=== PATIENT | male | born 1995 | race Hispanic/Latino ===

== ENCOUNTER 2019-02-22 19:33 | Emergency (ER) | payer BC ==
[2019-02-22 21:29] VITALS: TEMP 100.6
[2019-02-22 22:04] VITALS: BP 121/70; O2SAT 98
--- NOTE | 2019-02-22 22:29 | ED.PDOC ---
History of Present Illness - General Chief Complaint: Respiratory Problem Stated Complaint: sore throat Time Seen by Provider: 02/22/19 21:43 Source: patient, RN notes reviewed, Vital Signs reviewed Exam Limitations: no limitations - History of Present Illness Comments: Patient is a 24-year-old male who presents with complaints of sore throat, cough and fever for the last day. The sore throat is scratchy and burning in nature. It is moderate in intensity. Pain is worse with cough or swallowing. Nothing improves the pain. Fever is responsive to Tylenol and Motr in. Timing/Duration: yesterday Cough Quality/Degree: mild, dry cough Possible Cause: no prior episodes Improving Factors: nothing Worsening Factors: eating Associated Symptoms: cough, fever/chills, muscle aches, nasal drainage, sore throat Respiratory Risk Factors: no cause identified Allergies/Adverse Reactions: Allergies NO KNOWN ALLERGY Allergy (Unverified 02/28/14 18:09) Home Medications: Ambulatory Orders Oseltamivir Capsule [Tamiflu] 75 mg PO BID #10 cap 02/28/14 Lidocaine 2% Gel [Xylocaine 2% GEL] 10 ml PO Q6H #120 ml 02/22/19 Review of Systems - Review of Systems Constitutional: States: see HPI, fever. Denies: diaphoresis EENTM: States: see HPI, nose congestion, throat pain. Denies: mouth pain Respiratory: States: see HPI, cough. Denies: short of breath, stridor, wheezing Cardiology: States: no symptoms reported Gastrointestinal/Abdominal: States: no symptoms reported Genitourinary: States: no symptoms reported Musculoskeletal: States: no symptoms reported Skin: States: no symptoms reported Neurological: States: no symptoms reported Endocrine: States: no symptoms reported Hematologic/Lymphatic: States: no symptoms reported All other Systems: Reviewed and Negative Past Medical History (General) - Patient Medical History Hx Seizures: No Hx Stroke: No Hx Dementia: No Hx Asthma: No Hx of COPD: No Hx Cardiac Disorders: No Hx Congestive Heart Failure: No Hx Pacemaker: No Hx Hypertension: No Hx Thyroid Disease: No Hx Diabetes: No Hx Gastroesophageal Reflux: No Hx Renal Disease: No Hx Cancer: No Hx of HIV: No Hx Hepatitis C: No Surgical History: no surgical history - Vaccination History Hx Tetanus, Diphtheria Vaccination: No Hx Influenza Vaccination: No Hx Pneumococcal Vaccination: No - Social History Hx Tobacco Use: No Hx Chewing Tobacco Use: No Hx Alcohol Use: No Hx Substance Use: No Hx Substance Use Treatment: No Hx Depression: No Feels Threatened In Home Enviroment: No Feels Threatened In a Relationship: No Hx Physical Abuse: No Hx Emotional Abuse: No Hx Suspected Abuse: No Family Medical History - Family History Mother Family History: No Known Living Status: Still Living Hx Family Diabetes: Yes Physical Exam - Physical Exam General Appearance: Alert, Obvious distress, Well Developed, Well Groomed, Well Hydrated, Well Nourished Eye Exam: bilateral normal ENT Exam: nasal congestion, nasal drainage, pharyngeal erythema Neck: full range of motion, supple, trachea midline, lymphadenopathy (R), lymphadenopathy (L) Respiratory: chest non-tender, lungs clear, normal breath sounds, no respiratory distress, no accessory muscle use Cardiovascular/Chest: normal peripheral pulses, no edema, no gallop, no JVD, no murmur, tachycardia Gastrointestinal/Abdominal: normal bowel sounds, non tender, soft Extremity: normal range of motion, non-tender, normal inspection Neurologic: forensic specialist II-XII nml as tested, no motor/sensory deficits, alert, normal mood/affect, oriented x 3 Skin Exam: normal color Lymphatic: other - Submandibular lymphadenopathy bilaterally. Progress - Progress Progress: Differential diagnosis: Strep, viral pharyngitis, influenza, viral URI among others. 02/22/19 22:38 Patient is tolerating p.o. The strep and flu are negative. Plan on discharge home with prescription for viscous lidocaine for his viral pharyngitis. I have discussed this plan of care with the patient as well as his grandmother and they voiced understanding and agreement. Additionally, I will start him on Decadron here in the department. Jorge Trejo M.D. #[id number] - Results/Orders Results/Orders: 02/22/19 22:00 STREP A SCREEN CULTURE Stat Laboratory Results - last 24 hr 02/22/19 22:00 Group A Strep Rapid Negative Influenza a and B is negative. Departure - Departure Clinical Impression: Acute viral pharyngitis, Fever Time of Disposition: 22:39 Disposition: Discharge to Home or Self Care Condition: Good Departure Forms: ED Discharge - Pt. Copy, Patient Portal Self Enrollment Instructions: Sore Throat, Adult (DC) Prescriptions: Lidocaine 2% Gel [Xylocaine 2% GEL] 10 ml PO Q6H #120 ml Home Medications: Ambulatory Orders Oseltamivir Capsule [Tamiflu] 75 mg PO BID #10 cap 02/28/14 Lidocaine 2% Gel [Xylocaine 2% GEL] 10 ml PO Q6H #120 ml 02/22/19
[2019-02-22] MEDS ORDERED: DEXAMETHASONE INJ 10 MG/ML VIAL IM ONE (22:43)
[2019-02-22] MEDS: DEXAMETHASONE INJ 10 MG/ML VIAL PO ONE (22:49)
[2019-02-22] MEDS: LIDOCAINE HCL 2% (MOUTH-THROAT) 15 ML UD MT ONE (22:49)
== END 2019-02-22 22:55 | disposition home or self-care (01) ==
LOC: ER 19:33
DX: J02.9 Acute pharyngitis, unspecified (principal)
CPT/HCPCS: 87070; 87502; 87880; J1100